=== PATIENT | female | born 1990 | race Caucasian/White ===

== ENCOUNTER 2020-04-17 19:59 | Emergency (ER) | payer OTHER, SELFPAY ==
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
[2020-04-17 20:02] VITALS: BP 151/83; PULSE 101; RESP 20; TEMP 36.4; O2SAT 100
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
[2020-04-17 21:00] VITALS: BP 147/78; PULSE 97; RESP 18; O2SAT 100
[2020-04-17 23:30] VITALS: BP 134/73; PULSE 69; RESP 16; O2SAT 97
== END 2020-04-17 23:30 | disposition home or self-care (01) ==
PROVIDERS: Emergency Provider Nurse Practitioner
DX: S19.9XXA Unspecified injury of neck, initial encounter (principal); S00.11XA Contusion of right eyelid and periocular area, initial encounter; Y04.8XXA Assault by other bodily force, initial encounter; Y04.2XXA Assault by strike against or bumped into by another person, initial encounter
CPT/HCPCS: 70490; 81025; 99284; L0140

== ENCOUNTER 2023-03-06 13:03 | Emergency (ER) | payer OTHER, SELFPAY ==
[2023-03-06 13:15] VITALS: BP 120/62; PULSE 104; RESP 14; TEMP 36.8; O2SAT 100
--- NOTE | 2023-03-06 13:53 | ED.GENADULT ---
HPI - General Adult General Chief complaint: Upper Respiratory Infection Stated complaint: Sore Throat Time Seen by Provider: 03/06/23 13:40 Source: patient Mode of arrival: ambulatory Limitations: no limitations History of Present Illness HPI narrative: 32-year-old female who presents to [facility] with complaints of sore throat and right ear pain past 2 days. Did home COVID test yesterday which was negative but has not had COVID vaccinations. Patient reports that throat is sore with swallowing has been taking Tylenol for her discomfort.Patient reports no known fevers, chills but has had some body aches. MD complaint: Sore throat, right ear pain Onset (ago): day(s) (2) Severity: moderate Treatments prior to arrival: other (Tylenol) Related Data Allergies Allergy/AdvReac Type Severity Reaction Status Date / Time iodine Allergy Unknown Other Verified 03/06/23 13:31 adhesive Allergy Other Verified 03/06/23 13:38 Latex, Natural Rubber Allergy Other Verified 03/06/23 13:38 Review of Systems Review of Systems: CONSTITUTIONAL: Denies malaise, chills, sweats, or fever. EYES: Denies visual changes, redness, or discharge. ENT: Reports rhinorrhea, congestion, sinus pain,right otalgia and sore throat. CARDIOVASCULAR: Denies chest pain, palpitations, or edema. RESPIRATORY: Reports cough.? Denies dyspnea. GASTROINTESTINAL: Denies abdominal pain, nausea, vomiting, diarrhea SKIN: Denies rash or itching. MUSCULOSKELETAL:Reports myalgia. NEUROLOGIC: Denies headache. All systems reviewed & are unremarkable except as noted in HPI and below PMFSH Past Medical History Medical History No significant past medical history Surgical History Surgical History No significant past surgical history Social History Social History Smoking status: Never smoker Alcohol intake: current Substance use: never Comments At time of signature, agree with nursing past medical, surgical, social and family history. There is no relevant family history pertinent to the presenting complaint Exam Narrative: GENERAL: Well-appearing, well-nourished, and in no acute distress. HEAD: Normocephalic EYES: PERRLA, conjunctivae clear ENT: Nares clear, turbinates edematous and erythematous, clear discharge. Mucous membranes moist. TM pearly gamino with dull light reflex bilaterally; no tragal tenderness. Oropharynx erythematous without lesions. Tonsils enlarged especially right and throat without exudate, no drooling, no hoarseness, no trismus, uvula midline. NECK: Supple. lymphadenopathy CHEST: Clear to auscultation, breath sounds equal. No wheezing, rhonchi, rales, or stridor. No respiratory distress, speaks in full sentences.SAO2 100% on room air HEART: Regular rate and rhythm. No murmur heard. SKIN: Warm, dry, no rash. NEURO: Alert and oriented x3. PSYCH: Normal mood and affect Course Course Emergency Course: Patient is aware of diagnosis, understands and agrees to treatment plan.? Anticipatory guidance given.? Patient agrees to follow-up as directed and is aware of reasons to seek care at the emergency department. Portions of this record may have been created with voice recognition software Level of Care: Express Care Visit Vital Signs Vital signs: Vital Signs Temperature 36.8 C 03/06/23 13:15 Pulse Rate 104 H 03/06/23 13:15 Respiratory Rate 14 03/06/23 13:15 Blood Pressure 120/62 03/06/23 13:15 Pulse Oximetry 100 03/06/23 13:15 Oxygen Delivery Room Air 03/06/23 13:15 Temperature 36.8 C 03/06/23 13:15 Pulse Rate 104 H 03/06/23 13:15 Respiratory Rate 14 03/06/23 13:15 Blood Pressure 120/62 03/06/23 13:15 Pulse Oximetry 100 03/06/23 13:15 Oxygen Delivery Room Air 03/06/23 13:15 Reviewed Medica
== END 2023-03-06 14:06 | disposition home or self-care (01) ==
PROVIDERS: Emergency Provider Registered Nurse
DX: J02.0 Streptococcal pharyngitis (principal)
CPT/HCPCS: 87880; 99213; G0463

== ENCOUNTER 2023-03-25 04:30 | Emergency (ER) | payer OTHER, SELFPAY ==
[2023-03-25] VITALS (7 sets, daily range): BP systolic 129–152; BP diastolic 88–96; PULSE 81–109; RESP 14–18; TEMP 36.7; O2SAT 100
[2023-03-25] MEDS: FAMOTIDINE 20 MG/2 ML VIAL (04:51)
[2023-03-25] MEDS: SODIUM CHLORIDE 0.9% IV 1,000 ML 1000 ML (04:51)
[2023-03-25] MEDS: diphenhydrAMINE HCl INJ 50 MG/ML VIAL 25 MG IV PUSH (04:57)
--- NOTE | 2023-03-25 05:56 | ED.ALLEREA ---
HPI - Allergic Reaction General Chief complaint: Allergic Reaction Stated complaint: rash, trouble swallowing Time Seen by Provider: 03/25/23 05:18 Source: patient and family (significant other) Limitations: no limitations History of Present Illness HPI narrative: Patient presents to the emergency department accompanied by her significant other for the rash that began approximately 3:30 a.m. just prior to arrival as she was doing housework. Patient innocent the rash being most prominent on her back and believes that might have been a small amount on her arms and legs and after receiving Benadryl for the rash has since resolved. Patient said the rash was very itchy. Patient admits to history of hives in which she has had allergy testing in the past and says she is allergic to iodine and adhesives and latex. Patient denies any new exposures. Patient denies environments, animals, soaps, detergents, creams, furniture, cleaning supplies. Patient denies any abnormal food consumption and denies any new or changed medications. Patient denies nausea, vomiting, diarrhea, difficulty breathing, chest pain, facial swelling, difficulty swallowing, lightheadedness, recent injuries, fever. Patient admits to recently being treated for strep throat and completed the antibiotic course 1 week ago and a sense that although symptoms resolved. Related Data Allergies Allergy/AdvReac Type Severity Reaction Status Date / Time iodine Allergy Unknown Other Verified 03/25/23 05:00 adhesive Allergy Other Verified 03/25/23 05:00 Latex, Natural Rubber Allergy Other Verified 03/25/23 05:00 Review of Systems Review of Systems: A 10 system review of systems was completed on the patient and is negative except for what is stated in the HPI. Nursing and ancillary documentation was reviewed. [facility] Past Medical History Medical History No significant past medical history Surgical History Surgical History No significant past surgical history Social History Social History Smoking status: Never smoker Alcohol intake: current Substance use: never Comments At time of signature, I have reviewed and agree with nursing past medical, surgical, social and family history unless otherwise noted. Please see the nursing chart for further information. There is no relevant family history pertinent to the presenting complaint. Exam Narrative: CONST: No acute distress. Well nourished. HENMT: Head is normocephalic and atraumatic. Moist mucous membranes. No posterior oropharynx erythema. No oropharyngeal lesions. EYES: No conjunctival icterus, injection, or pallor. PERRL. NECK: No meningeal signs. RESP: Able to speak in full sentences. Normal respiratory effort. CTAB. CARDIO: Regular rate. Regular rhythm. 2+ DP and radial pulses bilaterally. GI: Nondistended. No tenderness to palpation. Soft. : No CVA tenderness to palpation. SKIN: Urticarial rash on back, Skin is warm and dry. NEURO: Oriented x3. Moves all extremities. EXTREM: No pedal edema. PSYCH: Normal affect. Course Vital Signs Vital signs: Vital Signs Temperature 98.1 F 03/25/23 04:35 Pulse Rate 109 H 03/25/23 04:35 Respiratory Rate 18 03/25/23 04:35 Blood Pressure 139/91 H 03/25/23 04:35 Pulse Oximetry 100 03/25/23 04:35 Oxygen Delivery Room Air 03/25/23 04:35 Temperature 98.1 F 03/25/23 04:35 Pulse Rate 84 03/25/23 06:01 Respiratory Rate 16 03/25/23 06:01 Blood Pressure 135/96 H 03/25/23 06:01 Pulse Oximetry 100 03/25/23 06:01 Oxygen Delivery Room Air 03/25/23 05:06 MDM - Allergic Reaction MDM Narrative Medical decision making narrative: Patient presents as noted above, vitals stable, no distress, examination as noted above. Rash consistent with urticaria. Unknown expos
== END 2023-03-25 07:13 | disposition home or self-care (01) ==
PROVIDERS: Emergency Provider Student in an Organized Health Care Education/Training Program
DX: T78.40XA Allergy, unspecified, initial encounter (principal); L50.0 Allergic urticaria; Z91.040 Latex allergy status; Z91.048 Other nonmedicinal substance allergy status; Z88.8 Allergy status to other drugs, medicaments and biological substances
CPT/HCPCS: 96361; 96374; 96375; 99284; J1200; J7030

== ENCOUNTER 2025-02-11 11:18 | Emergency (ER) | payer OTHER, SELFPAY ==
[2025-02-11 11:26] VITALS: BP 121/88; PULSE 110; RESP 18; TEMP 36.5; O2SAT 99
--- NOTE | 2025-02-11 11:26 | ED.WOUNDLAC ---
HPI - Wound/Laceration General Chief Complaint: Wound/Laceration Stated Complaint: Left Hand Thumb Laceration Time Seen by Provider: 02/11/25 11:26 Source: patient, RN notes reviewed and old records reviewed Mode of arrival: ambulatory Limitations: no limitations History of Present Illness HPI narrative: 34-year-old female presents to the [facility] with a laceration to the palmar aspect left thumb at the IP States that she cut it with a razor blade 30 minutes prior to arrival. Applied pressure Unknown last Tdap Related Data Allergies Allergy/AdvReac Type Severity Reaction Status Date / Time iodine Allergy Severe Unknown Verified 02/11/25 11:36 iohexol (From contrast - CT, Allergy Severe Unknown Verified 02/11/25 11:36 X-RAY) Latex, Natural Rubber Allergy Intermediate Hives Verified 02/11/25 11:36 adhesive Allergy Mild Rash Verified 02/11/25 11:36 Review of Systems Review of Systems: All systems reviewed & are unremarkable except as noted in HPI and below Constitutional: Constitutional: Reports no additional constitutional complaints Musculoskeletal: Musculoskeletal: Reports as per HPI Integumentary/Breasts: Skin/Breast: Reports as per HPI PMFSH Past Medical History Medical History No significant past medical history Surgical History Surgical History No significant past surgical history Social History Social History Smoking status: Never smoker Alcohol intake: current Substance use: never Comments At the time of my signature, I reviewed and agree with the nursing past medical, surgical, social, and family history. There is no relevant family history pertinent to the patient complaint. Exam Const: General: cooperative, healthy appearing, comfortable, no acute distress, well developed, alert and well nourished Nutritional Appearance: well nourished Orientation/consciousness: patient oriented x3 Limitations: no limitations HENMT: Head: normal to inspection Eyes: General: appearance normal, both eyes and all related structures Alignment and Position: alignment normal Neck: Neck: normal visual inspection, full ROM, no lymphadenopathy and no meningeal signs Chest: Chest palpation & inspection: normal inspection of the chest Resp: Effort & Inspection: normal respiratory effort and able to speak in complete sentences Cardio: Rate: regular rate Skin: General skin exam: normal color and no rashes or lesions noted Wounds: wounds noted (1.5 cm palmar aspect left thumb IP joint) Neuro: General: patient oriented x3, gait normal, moves all extremities and no meningeal signs Cognition (Neuro): normal cognition Speech: normal speech Gait exam (Neuro): Normal gait present Extrem: General: normal to inspection, full ROM, capillary refill normal and normal gait Left upper extremity: hand vascular exam radial pulse present and normal capillary refill, abnormal ROM of finger pain with active ROM and pain with passive ROM, swelling and laceration (Thumb left hand) Psych: Appearance: grossly normal and well kempt Mental Status: mental status grossly normal Speech and movement: Normal speech and movement present and Clear speech present Affect: normal affect Attitude: cooperative Course Course Level of Care: Express Care Visit Vital Signs Vital signs: Vital Signs Temperature 97.7 F 02/11/25 11:26 Pulse Rate 110 H 02/11/25 11:26 Respiratory Rate 18 02/11/25 11:26 Blood Pressure 121/88 02/11/25 11:26 Pulse Oximetry 99 02/11/25 11:26 Oxygen Delivery Room Air 02/11/25 11:26 Temperature 97.7 F 02/11/25 11:26 Pulse Rate 110 H 02/11/25 11:26 Respiratory Rate 18 02/11/25 11:26 Blood Pressure 121/88 02/11/25 11:26 Pulse Oximetry 99 02/11/25 11:26 Oxygen Delivery Room Air 02/11/25 11:26 Reviewed Procedures Laceration Laceration 1: Date: 02/11/25 Time: 11:55 Site: hand (bailey thumb) Side (If applicable): left Size (cm): 1.5 Description: linear Depth: simple, single layer Local Anesthetic: lidocaine 1% Amount of anesthesia used (mL): 4 Pre-repair: wound explored and irrigated (150) ====== Skin Level ====== Skin layer closed with: nylon Size (cm): 5-0 Number of sutures: 3 Technique: simple, interrupted ====== Subcutaneous Layer ====== ====== Muscle Layer ====== ====== Tendon Layer ====== Dressing: Area cleaned with wound cleanser and saline due to patient's allergy to Betadine. Procedure explained, verbal consent obtained. Digital block performed. Irrigated with 200 mils of saline. Three sutures placed patient tolerated procedure MDM - Wound/Laceration MDM Narrative Medical decision making narrative: Patient sitting in exam room. Patient presents with a laceration to the left thumb. Patient had been working on car but cut on a razor blade Three sutures placed Patient appropriate for outpatient treatment with close follow-up, covering with antibiotic due to possible contamination Discharge instructions reviewed with patient, as well as provided in writing per nursing staff. The instructions also include specific and strict return/GO TO THE ER as well as f/u information. All questions have been answered, and the patient deny any further questions with discharge and discharge plan. Some parts of this dictation were generated by voice recognition software and may contain typographical and/or grammatical inaccuracies. Differential Diagnosis Differential diagnosis: Likely laceration, abscess, abrasion and avulsion of skin Critical Care Time Critical Care Time Critical Care Time: No Discharge Plan Discharge Clinical Impression: Vaccine for [id number], combined Laceration of thumb Qualifiers: Encounter type: initial encounter Damage to nail status: without damage Foreign body presence: without foreign body Laterality: left Qualified Code(s): S61.012A - Laceration without foreign body of left thumb without damage to nail, initial encounter Patient Disposition: Home Condition: Stable Instructions: Antibiotic Form, Finger Laceration (ED) Additional Instructions: Wash area twice a day with warm soapy water, pat dry. Apply ice every 2-3 hours for 15-20 minutes while awake Take Tylenol as needed for pain Take the cephalexin to reduce the chances of infection Follow-up with primary care provider in 2 weeks to have your sutures removed Wear the splint for comfort New or worsening symptoms go directly to the emergency room Patient Language: Czech Prescriptions: New cephalexin 500 mg capsule 500 mg PO Q12H Qty: 14 0RF Follow-up/Referrals: Christopher Hernadez MD [Primary Care Provider] - Stand Alone Forms: Work/School Release IP Time of Disposition: 12:14
[2025-02-11] MEDS: LIDOCAINE 1% LOCAL INJ 2 ML AMPUL 6 ML INFILTRATE (11:49)
[2025-02-11] MEDS: TETANUS,DIPHTHERIA,AC PERTUSSIS ADULT (0.5 ML) BOOSTRIX IM (11:49)
== END 2025-02-11 12:25 | disposition home or self-care (01) ==
PROVIDERS: Emergency Provider Nurse Practitioner; PCP Emergency Medicine
DX: S61.012A Laceration without foreign body of left thumb without damage to nail, initial encounter (principal); W26.8XXA Contact with other sharp object(s), not elsewhere classified, initial encounter; Z23 Encounter for immunization
CPT/HCPCS: 12001; 90471; 90715; 99213; G0463; J2003

== ENCOUNTER 2025-04-29 10:27 | Emergency (ER) | payer OTHER, SELFPAY ==
[2025-04-29 10:45] VITALS: BP 135/90; PULSE 103; RESP 16; TEMP 36.8; O2SAT 100
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
[2025-04-29 10:53] LABS: EDSTREPNEGPOS1 Negative (Negative)
== END 2025-04-29 11:03 | disposition home or self-care (01) ==
PROVIDERS: Emergency Provider Nurse Practitioner Family; PCP Emergency Medicine
DX: Z20.818 Contact with and (suspected) exposure to other bacterial communicable diseases (principal)
CPT/HCPCS: 87081; 87880; 99213; G0463